=== PATIENT | female | born 1985 | race Asian ===

== ENCOUNTER 2024-09-08 00:07 | Emergency (ER) | payer BC ==
[~2024-09-08] VITALS: Ht 167.6 cm; Wt 71.0 kg
[2024-09-08 00:12] VITALS: O2SAT 99
[2024-09-08 00:13] VITALS: BP 169/95; PULSE 118; TEMP 98.8; O2SAT 99
[2024-09-08] MEDS ORDERED: NITR-87 MT (00:31)
[2024-09-08] MEDS ORDERED: PHEN-815 MT (00:32)
[2024-09-08 00:40] LABS: CLARITY URINE CLOUDY (CLEAR); COLOR URINE DARK YELLOW (YELLOW); GLUCOSE URINE NEGATIVE (NEGATIVE); KETONES URINE TRACE (NEGATIVE); LEUKOCYTE ESTERASE URINE 2+ (NEGATIVE); NITRITE URINE NEGATIVE (NEGATIVE); OCCULT BLOOD URINE 2+ (NEGATIVE); PH URINE 5.5 (4.5-8.0); PROTEIN URINE 1+ (NEGATIVE); SPECIFIC GRAVITY URINE 1.034 (1.005-1.030)
[2024-09-08 01:00] VITALS: RESP 18
[2024-09-08 02:37] LABS: SQUAMOUS EPITHELIAL CELL URINE FEW /lpf (RARE/1+)
[2024-09-08 02:40] LABS: RBC URINE 0-2 /hpf (0-2)
[2024-09-08 02:41] LABS: WBC URINE 15-25 /hpf (0-2)
[2024-09-08 02:44] LABS: BACTERIA URINE NONE SEEN
== END 2024-09-08 01:10 | disposition home or self-care (01) ==
LOC: ER 00:07
DX: N39.0 Urinary tract infection, site not specified (principal); Z88.0 Allergy status to penicillin; Z90.49 Acquired absence of other specified parts of digestive tract
CPT/HCPCS: 81003; 87077; 87186; 99283